=== PATIENT | female | born 1985 | race Caucasian/White ===

== ENCOUNTER 2023-07-08 23:22 | Emergency (ER) | payer OTHER, SELFPAY ==
[2023-07-08 23:52] VITALS: BP 109/80; PULSE 75; RESP 15; TEMP 36.8; O2SAT 97
--- NOTE | 2023-07-09 00:52 | W.ED.ALCOHOL ---
Documented by User: GABBI Knight 07/09/23 01:02 HPI - Alcohol General: Chief Complaint: Alcohol Stated Complaint: MHE Stressed overwhelmed Time Seen by Provider: 07/08/23 23:37 Source: patient and family Mode of arrival: ambulatory Limitations: no limitations History of Present Illness: Patient is a 38-year-old female who presents to the emergency department due to stress for the past 3 months. Patient notes she was urged to come in by , who caught her drinking alcohol tonight and upon further interrogation had found out that she has drank half a pint of vodka every day for the past 3 months with no reported history of alcohol use. I first questioned the patient alone, who states she has just been unhappy at home and drinks to cope. She comments that she can stop whenever I want but also says that she does not want to because of how it helps her handle things. She does not report any suicidal ideation, homicidal ideation, self-harm, hallucinations, or any symptoms at this time. She denies a past psychological history and has never been seen in an inpatient psych facility. However, she does see primary care for refills on her SSRI, states she has been taking these as normal. She states she has had 1/2 pint of vodka tonight, and feels buzzed. She also clarifies that she feels safe at home, just that she does not get along with her . She has never seen counseling of any kind, including counseling for alcohol debilitation or marital counseling. She comments that she does not think she should be here and she only came to appease her . I spoke with in the waiting room separately, who agrees with the historical timeline and does state that she has no past history of alcohol use and that he wanted her checked out due to the quantity she has been consuming. He also notes that she has no psychiatric history other than meds for anxiety, and he too feels safe at home. He tells me that they have never tried counseling together, and comments that as soon as he found out how much she was drinking he put her in the car and brought her straight here because he did not know what else to do. He clarifies that she has not made comments about suicidal or homicidal ideation and has not been endorsing any hallucinations or other concerning symptoms. He denies any domestic violence in the household and does note that she has seemed more withdrawn since she has started drinking alcohol. He agrees that he can take her home tonight and arrange for outpatient counseling, and all other questions and concerns were addressed. MD complaint: alcohol intoxication Amount of alcohol consumed: Half pint of vodka Chronic alcohol use: Yes (Only for the past 3 months) Previous visits for alcohol intoxication: No Recent trauma: No Associated symptoms: Reports no associated symptoms; Deny abdominal pain, nausea, suicidal ideation or vomiting Treatments prior to arrival: none Review of Systems General: Reports: 10 or more systems reviewed and unremarkable except in HPI and below Const: Denies: fever(s), chills or fatigue Eyes: Denies: change in vision ENMT: Denies: throat pain, ear or mastoid pain or nasal discharge Card: Denies: chest pain, palpitations, swelling of feet/ankles or lightheadedness Resp: Denies: dyspnea, productive cough or wheezing GI: Denies: abdominal pain, nausea, vomiting, diarrhea or constipation : Denies: flank pain, difficulty voiding, dysuria or urinary frequency Musc: Denies: neck pain, back pain or joint pain Skin/Breast: Denies: rash Neuro: Denies: headache(s), numbness in extremities or weakness in extremities Psych: Reports: anxiety and other (Stress, alcohol intoxication); Denies: visual hallucinations, auditory hallucinations, tactile hallucinations, suicidal ideation or homicidal ideation PFS ED PFSH: Medical History Chronic use of benzodiazepine for therapeutic purpose Psychiatric care Panic disorder Chronic post-traumatic stress disorder Generalized anxiety disorder Social History Smoking and tobacco/nicotine status: current every day tobacco/nicotine user cigarettes Packs smoked per day: 0.5 Physical Exam Const: COMMON NORMALS: no acute distress, patient oriented x3 and no limitations GENERAL APPEARANCE: cooperative, comfortable, well developed and odor of alcohol detected (Mildly intoxicated) ORIENTATION/CONSCIOUSNESS: Yes awake, Yes oriented to person, Yes oriented to place and Yes oriented to time HENMT: COMMON NORMALS: normocephalic, atraumatic and hearing grossly normal bilaterally HEAD & SCALP: normocephalic and atraumatic Eye: COMMON NORMALS: Equal, round and reactive pupils present, EOMs intact bilaterally and conjunctivae normal CONJUNCTIVA: Yes conjunctivae normal PUPIL: Yes Equal, round and reactive pupils present Neck/C-Spine: COMMON NORMALS: full ROM, supple and no JVD Resp: COMMON NORMALS: normal respiratory effort, No retractions, No use of accessory muscles and clear to auscultation bilaterally AUSCULTATION: clear to auscultation bilaterally Cardio: COMMON NORMALS: no JVD, regular rate, regular rhythm, No clicks present (Cardio), No murmurs present (Cardio) and No rub (Cardio) RATE: regular rate RHYTHM: regular rhythm GI: COMMON NORMALS: Normal to inspection, nondistended, normoactive bowel sounds present, Soft to palpation and non-tender AUSCULTATION: Yes normoactive bowel sounds PALPATION: Yes Soft to palpation RECTAL EXAM: deferred Extremity: COMMON NORMALS: normal to inspection, full ROM and capillary refill normal Neuro: COMMON NORMALS: patient oriented x3, moves all extremities, no focal motor deficits and no sensory deficits noted SENSORIUM/ORIENTATION: Yes oriented to person, Yes oriented to place and Yes oriented to time Psych: COMMON NORMALS: mental status grossly normal, Normal thought process present and speech normal ATTITUDE: Yes calm ACTIVITY/MOTOR BEHAVIOR: Yes appropriate eye contact SPEECH: Yes normal speech THOUGHT PROCESS: Normal thought process present THOUGHT CONTENT: Yes Normal thought content present, No Suicidality present and No Homicidality present ATTENTION/CONCENTRATION: Yes attention grossly intact Skin: COMMON NORMALS: no rashes or lesions noted GENERAL SKIN EXAM: no rashes or lesions noted Course Vital Signs: Vital signs: Vital Signs Temperature 98.3 F 07/08/23 23:52 Pulse Rate 75 07/08/23 23:52 Respiratory Rate 15 07/08/23 23:52 Blood Pressure 109/80 07/08/23 23:52 Pulse Oximetry 97 07/08/23 23:52 MDM - Alcohol Medical Decision Making After thorough independent conversations with both the patient and , we came to agreement that outpatient counseling would be necessary and that there is no need for psychiatric workup at this time. There is no mention of suicidality or homicidality, no reported hallucinations, and no other concerning historical factors that would warrant inpatient psychiatric treatment. Will do case management referral for [facility] and [place], as patient already sees her primary care there for refills on her anxiety meds. Neither of them have ever seek counseling, and we came to an agreement that this would be the next best step. Both feel safe going home tonight. I did run this case by supervising physician, Dr. Dominguez, who agrees with disposition. Reasons to return were thoroughly discussed with both the patient and the , to which they both agree. No radiology studies performed this visit Discharge Plan Discharge Patient Disposition: Home Clinical Impression: Stress at home Condition: Stable Prescriptions: No Action citalopram 40 mg tablet See Rx Instructions .ROUTE .COMPLEX 30 Days Qty: 30 5RF Dose Instruction: Take 1 tablet by mouth once daily Rx Instructions: Take 1 tablet by mouth once daily hydroxyzine HCl 25 mg tablet 25 mg PO BID PRN (Reason: itching/anxiety) Qty: 30 5RF lorazepam [Ativan] 0.5 mg tablet 0.5 mg PO BID PRN (Reason: anxiety) 30 Days Qty: 60 5RF Discharge Orders: Discharge ED (Routine); Ordered 07/09/23 Ordered By: Aleksandr Schmitt Referrals: Tana Canela MD [Primary Care Provider] - Discharge Diet: Usual diet Discharge Activity: Increase activity as tolerated Patient Instructions: Alcohol Use Disorder (ED) Activity Restrictions/Additional Instructions: Follow-up with [facility] as discussed. Refrain from excessive alcohol drinking. Follow-up with your primary care provider. Return with any new or concerning symptoms you may have. 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 Fwd Documented by User: Venkatesh Gunter DO 07/09/23 07:18 HPI - Alcohol General: Chief Complaint: Alcohol Stated Complaint: MHE Stressed overwhelmed Time Seen by Provider: 07/08/23 23:37 PFSH ED PFSH: Medical History Chronic use of benzodiazepine for therapeutic purpose Psychiatric care Panic disorder Chronic post-traumatic stress disorder Generalized anxiety disorder Social History Smoking and tobacco/nicotine status: current every day tobacco/nicotine user cigarettes Packs smoked per day: 0.5 Course Vital Signs: Vital signs: Vital Signs Temperature 98.3 F 07/08/23 23:52 Pulse Rate 75 07/08/23 23:52 Respiratory Rate 15 07/08/23 23:52 Blood Pressure 109/80 07/08/23 23:52 Pulse Oximetry 97 07/08/23 23:52 MDM - Alcohol Medical Decision Making After thorough independent conversations with both the patient and , we came to agreement that outpatient counseling would be necessary and that there is no need for psychiatric workup at this time. There is no mention of suicidality or homicidality, no reported hallucinations, and no other concerning historical factors that would warrant inpatient psychiatric treatment. Will do case management referral for [facility] and [place], as patient already sees her primary care there for refills on her anxiety meds. Neither of them have ever seek counseling, and we came to an agreement that this would be the next best step. Both feel safe going home tonight. I did run this case by supervising physician, Dr. Dominguez, who agrees with disposition. Reasons to return were thoroughly discussed with both the patient and the , to which they both agree. Chart reviewed Discharge Plan Discharge Patient Disposition: Home Clinical Impression: Stress at home Condition: Stable Prescriptions: No Action citalopram 40 mg tablet See Rx Instructions .ROUTE .COMPLEX 30 Days Qty: 30 5RF Dose Instruction: Take 1 tablet by mouth once daily Rx Instructions: Take 1 tablet by mouth once daily hydroxyzine HCl 25 mg tablet 25 mg PO BID PRN (Reason: itching/anxiety) Qty: 30 5RF lorazepam [Ativan] 0.5 mg tablet 0.5 mg PO BID PRN (Reason: anxiety) 30 Days Qty: 60 5RF Discharge Orders: Discharge ED (Routine); Ordered 07/09/23 Ordered By: Aleksandr Schmitt Referrals: Tana Canela MD [Primary Care Provider] - Discharge Diet: Usual diet Discharge Activity: Increase activity as tolerated Patient Instructions: Alcohol Use Disorder (ED) Activity Restrictions/Additional Instructions: Follow-up with [facility] as discussed. Refrain from excessive alcohol drinking. Follow-up with your primary care provider. Return with any new or concerning symptoms you may have. 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
--- NOTE | 2023-07-15 09:23 | DCPLANNER ---
messaged sent to [facility] [place] scheduling for er f/u
== END 2023-07-09 00:09 | disposition home or self-care (01) ==
PROVIDERS: Emergency Provider Physician Assistant; PCP Family Medicine
DX: Z63.0 Problems in relationship with spouse or partner (principal); F17.210 Nicotine dependence, cigarettes, uncomplicated
CPT/HCPCS: 99283